=== PATIENT | female | born 1945 | race Caucasian/White ===

== ENCOUNTER 2016-10-24 18:03 | Inpatient (IN) | payer MEDICARE, OTHER ==
[~2016-10-24] VITALS: Ht 167.6 cm; Wt 65.5 kg
[2016-10-24 18:08] VITALS: BP 139/63; PULSE 60; RESP 20; O2SAT 99
[2016-10-24 19:59] LABS: BASOPHILS % (AUTO) 0.2 % (0-3); EOSINOPHILS % (AUTO) 0.1 % (0-5); Mean Corpuscular Hemoglobin 31.2 pg (27.0-35.0); Mean Corpuscular Volume 90.3 fL (81-100); Platelet Count 202 bil/L (150-400)
--- NOTE | 2016-10-24 20:08 | ED.REPORT ---
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 She also began experiencing nausea and vomiting four hours ago. The pt had major abdominal surgery in 03/2016 including tumor removal, ovary removal and small intestine resection. She experienced similar symptoms in 06/2016 and was seen in [place]. A CT scan was performed and ruled out a bowel obstruction. Nursing Notes Stated Complaint: ABDOMINAL PAIN,NAUSEA Chief Complaint: Female Abdominal Pain Nursing Notes Reviewed: Yes Allergies: Coded Allergies: morphine (Verified Allergy, Severe, hives, 10/24/16) Scheduled Ascorbic Acid (Vitamin C) 250 Mg Tab.chew 500 MG PO BID Aspirin Chew (Aspirin Chew) 81 Mg Chew 81 MG PO HS Calcium Carbonate (Calcium Carbonate) 600 Mg Tablet 600 MG PO BID Cholecalciferol (Vitamin D3) (Vitamin D3) 2,000 Unit Tablet 2,000 UNIT PO DAILY Lanreotide Acetate (Somatuline [place]) 60 Mg/0.2 Ml Syringe Unknown Dose SQ QMONTH General Time Seen by MD: 20:08 Chief Complaint Abdominal pain Hx Obtained From: Patient, Spouse Arrived By: Walk-in Sudden in Onset?: No Onset Occurred: 9 - 12 hours ago Symptom Duration: Since onset Recent Healthcare: No recent hospitalization, Recent doctor visit Similar Sx Previous: Yes Past Medical History Past Medical History neuroendocrine cancer with mets to liver Past Surgical History abdominal surgery 03/2016 Smoking History Unknown if Ever Smoker 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 Physical Exam Vital Signs Vital Signs (First) Date Time Temp Pulse Resp B/P Pulse Ox O2 Delivery O2 Flow Rate FiO2 10/24/16 18:08 36.3 60 20 139/63 99 Room Air Initial VS: Reviewed General/Constitutional: Awake, Alert Respiratory / Chest: Atraumatic, Breath sounds NL, Breath sounds = bilat, No respiratory distress Cardiovascular: Heart rate NL, Regular rhythm, Heart sounds NL Abdomen: Atraumatic, Soft mild diffuse abdominal tenderness Back: Atraumatic, Full range of motion Head / Eyes: Atraumatic, Normocephalic, PERRL, EOMI ENT: Atraumatic, Airway patent, Mucous membranes moist Skin: Atraumatic, Color NL, No rash, Warm, Dry Neurologic: Oriented X3, Speech NL, No motor deficits, No sensory deficits Neck: Atraumatic, Supple, Full range of motion Upper Extremity / MS: Atraumatic, Full range of motion Lower Extremity / Pelvis / MS: Atraumatic, Full range of motion Psychiatric: Affect NL, Mood NL Interpretation & Diagnostics Interpretation & Diagnostics: CT Abdomen: IMPRESSION: 1. Multiple hepatic hypodensities peripherally. Differential diagnoses include hepatic cysts, abscesses and metastases. Comparison to outside CTs, if available, would be helpful. 2. Distal small bowel obstruction. 3. Absence of gallbladder consistent with cholecystectomy. There is intrahepatic and extrahepatic biliary dilation. 4. Bilateral subcutaneous soft tissue nodules in the in the buttock, possibly injection granulomas. The result was discussed with Dr. Dixon prior to dictation. Dictated by: Anna Marie Snow M.D. on 10/24/2016 at 21:21 Transcribed by: MACI on 10/24/2016 at 21:34 Approved by: Anna Marie Snow M.D. on 10/24/2016 at 22:38 Lab Results Interpretation Result Diagram: 10/24/16194410/24/161944 Test 10/24/16 19:45 White Blood Count 17.7th/mm3 (3.8-10.1) Red Blood Count 4.87mil/mm3 (3.90-5.20) Hemoglobin 15.2g/dL (12.0-15.6) Hematocrit 44.0% (35.0-46.0) Mean Corpuscular Volume 90.3fL (81-100) Mean Corpuscular Hemoglobin 31.2pg (27.0-35.0) Mean Corpuscular Hemoglobin Concent 34.5% (32.0-37.0) Red Cell Distribution Width 12.4% (12.3-15.4) Platelet Count 202bil/L (150-400) Neutrophils (%) (Auto) 91.0% (40-74) Lymphocytes (%) (Auto) 3.3% (14-46) Monocytes (%) (Auto) 5.0% (4-12) Eosinophils (%) (Auto) 0.1% (0-5) Basophils (%) (Auto) 0.2% (0-3) Sodium Level 136mEq/L (134-144) Potassium Level 4.2mEq/L (3.5-5.2) Chloride Level 96mEq/L (97-108) Carbon Dioxide Level 23mmol/L (18-29) Blood Urea Nitrogen 13mg/dL (8-27) Creatinine 0.63mg/dL (0.57-1.00) Estimat Glomerular Filtration Rate 134mL/min (>59) Glucose Level 163mg/dL (60-99) Lactic Acid Level 2.2mmol/L (0.4-2.0) Calcium Level 9.8mg/dL (8.5-10.1) Magnesium Level 2.0mg/dL (1.6-2.6) Total Bilirubin 0.7mg/dL (0.0-1.2) Aspartate Amino Transf (AST/SGOT) 39U/L (0-50) Alanine Aminotransferase (ALT/SGPT) 27U/L (0-32) Alkaline Phosphatase 121U/L (25-165) Total Protein 7.0g/dL (6.4-8.4) Albumin 4.1g/dL (3.4-5.0) Lipase 16U/L (13-60) Hold Ding Top Tube Received (Received) Pulse Oximetry Interpretation Pulse Oximetry Interpretation: 99% on room air Pulse Oximetry: Pulse Ox normal Re-Eval/Medical Decision Re-Evaluation/Progress : Time of Eval: 22:15 Re-Evaluation/Progress Note: Pt rechecked, who is comfortable. Consults, diagnosis, and plan for admission are discussed. The pt understands and agrees with the plan. All questions are addressed at this time. Consultation #1: Call Returned at: 22:02 Note: Spoke with Dr. Claudia Hernández, pt's oncologist in [place], [place], regarding pt's case. Dr. Hernández understands the situation and agrees with the plan. Consultation #2: Referral / Consult Name: Guevara Ellison MD Consulted With: Surgeon Call Returned at: 22:14 Provisioning Specialist: Will see patient Note: Consulted with Dr. Ellison, surgeon, regarding pt's case. Dr. Ellison agrees with the plan and agrees to see the pt. Consultation #3: Referral / Consult Name: Peggy Rose DO Consulted With: Hospitalist Call Returned at: 22:25 Provisioning Specialist: Agrees with eval, Agrees with plan, Accepts admit Note: Spoke with Dr. Rose, hospitalist, regarding pt's case. Dr. Rose agrees with the evaluation and agrees to admit the pt. Consultation #4: Referral / Consult Name: Guevara Ellison MD Consulted With: Surgeon Call Returned at: 23:06 Note: Spoke with Dr. Ellison in the ED, who recommends surgery at some point. Counseled Regarding: Diagnosis, Lab results, Need for admission Discharge & Departure Primary Impression: Small bowel obstruction Additional Impression: Liver metastasis Disposition: ADMITTED TO HOSPITAL Discharge Condition All VS Reviewed: Yes Condition: Stable Referrals: OTHER,PHYSICIAN (PCP) Scribe Attestation Portions of this note were transcribed by Jeffrey Ortiz. I, Dr. Dixon personally performed the history, physical exam and medical decision-making; I reviewed and confirmed the accuracy of the information in the transcribed note. Signed by: Marian Heaton, 10/24/2016 and 2317. Med Dixon DO Oct 24, 2016 20:08 JEFFREY ORTIZ Oct 24, 2016 20:28
[2016-10-24] MEDS ORDERED: Iohexol 300 mg/mL 30 mL Inj PO ONE (20:10)
[2016-10-24] MEDS ORDERED: fentaNYL-PF 50 mCg/mL 2 mL Inj IVPUSH PRN (20:30)
[2016-10-24] MEDS ORDERED: Ondansetron 2 mg/mL 2 mL Inj IVPUSH PRN ×2 (20:30→23:35)
--- NOTE | 2016-10-24 21:33 | DRSVH ---
PROCEDURE: CT ABDOMEN AND PELVIS WITH CONTRAST ([id number]) INDICATIONS: abdominal pain, 16K wbc count TECHNIQUE: After the administration of intravenous contrast, 5 mm thick sections acquired from the diaphragm to the symphysis. 5 mm coronal and sagittal reformats were acquired. For radiation dose reduction, the following was used: automated exposure control, adjustment of mA and/or kV according to patient siz e. COMPARISON: None. FINDINGS: Image quality: Excellent. ABDOMEN: Lung bases: Lung bases are clear. Heart size is normal. There is a small hiatal hernia. Solid organs: There are multiple hepatic hypodensities. Some hypodensities demonstrate somewhat trian gular configuration, extending to the hepatic capsule. Spleen is normal in size and enhancement. Gal lbladder is absent. There is intrahepatic and extrahepatic biliary dilation. Pancreas enhances hetal lly. No adrenal nodules. Kidneys demonstrate normal size and enhancement, without hydronephrosis. Peritoneum and bowel: Gastric antrum may be thickened. The proximal small bowel loops are filled wit h fluid and mildly distended measuring up to 3.5 cm. The terminal ileum is decompressed. The CT findi ngs are consistent with distal small bowel obstruction. There is a small amount of free fluid. No hector e air. Nodes and vessels: No retroperitoneal or mesenteric adenopathy by size criteria. Aorta and inferior vena cava are normal in size. Miscellaneous: No ventral hernias. PELVIS: Genitourinary: Bladder wall thickness is normal. Miscellaneous: No inguinal hernias or adenopathy. Multiple subcutaneous nodules are seen in the but tock bilaterally. Bones: No suspicious bony lesions. No vertebral body compression fractures. IMPRESSION: 1. Multiple hepatic hypodensities peripherally. Differential diagnoses include hepatic cysts, abscess es and metastases. Comparison to outside CTs, if available, would be helpful. 2. Distal small bowel obstruction. 3. Absence of gallbladder consistent with cholecystectomy. There is intrahepatic and extrahepatic january iary dilation. 4. Bilateral subcutaneous soft tissue nodules in the in the buttock, possibly injection granulomas. The result was discussed with Dr. Dixon prior to dictation. Dictated by: Anna Marie Snow M.D. on 10/24/2016 at 21:21 Transcribed by: MACI on 10/24/2016 at 21:34 Approved by: Anna Marie Snow M.D. on 10/24/2016 at 22:38
[2016-10-24 22:25] VITALS: BP 144/62; PULSE 82; RESP 16; O2SAT 97
--- NOTE | 2016-10-24 22:53 | PCM.HPMED ---
Subjective Date of Service Oct 24, 2016 Primary Provider: Admitting Physician: Primary Care Physician: Other,Physician Attending Physician: Admit Status: From the Emergency Department Chief Complaint: Female with nausea vomiting and Abdominal pain History of Present Illness: Charity is a very pleasant 71 year old female with a past medical history of neuroendocrine tumor with mets to the liver, now status post tumor resection, small bowel resection, bilateral nephrectomy, cholecystectomy in March 2016. She presented to the ED today after experiencing acute onset 9 out of 10 severe sharp abdominal pain around 12:00 noon on day of admission. Patient states that she has had similar pain to this a total of 4 times in the past, since her abdominal surgery March 2016. She was hospitalized after experienced similar symptoms on 06/2016 and was seen in [place] where she had CT of the abdomen that was negative for SBO at that time. Patient states that she has been experiencing nausea and abdominal pain today but denies vomiting. She states that she has been voiding without difficulty and passed a normal bowel movement this morning. She recently returned from a trip on Tuesday from [facility]. Patient travels frequently, but not out of the country. Patient' s only medication is Lanreotide. Patient lives at home with her Nahum. Patient had NG tube placed in the ED and CT of the abdomen which showed distal small bowel obstruction and liver lesions likely representing metastases. Call was placed by the ED physician to patient's oncology group in [place] regarding patient's current status. Patient is also being seen by Dr. Ellison of surgery. Patient was admitted to inpatient status for possible surgical intervention in the morning, vs possible transport to [facility] for surgery there. Patient denies fever, chills, vomiting, headaches, sick contacts , diarrhea, sore throat. CT abdomen and pelvis with contrast showed: 1. Multiple hepatic hypodensities peripherally. Differential diagnoses include hepatic cysts, abscesses and metastases. Comparison to outside CTs, if available , would be helpful. 2. Distal small bowel obstruction. 3. Absence of gallbladder consistent with cholecystectomy. There is intrahepatic and extrahepatic biliary dilation. 4. Bilateral subcutaneous soft tissue nodules in the in the buttock, possibly injection granulomas. In the ED: Vital signs: Temperature 36.3, pulse 60, respiratory rate 20, blood pressure 139 /63, 99% on room air. Hemogram: White blood cells 17.7, PMNs 91%, lymphocytes 3.3% Chemistry panel: Sodium 136, potassium 4.2, chloride 96, CO2 23, BUN 13, creatinine 0.63, glucose elevated at 163, lactic acid elevated at 2.2, lipase 16 Blood cultures ordered and pending Review of Systems: A comprehensive review of systems was conducted and was negative except as mentioned in history of present illness. Allergies Coded Allergies: morphine (Verified Allergy, Severe, hives, 10/24/16) Home Medications Lanreotide PMH neuroendocrine cancer with mets to liver, status post surgical resection 03/2016 Surgical History abdominal surgery 03/2016 secondary to neuroendocrine tumor resection, with removal of gallbladder, omentum, bilateral ovaries, small bowel resection, and ablation of the liver. Family History Mother of lung cancer secondary to tobacco smoke Father of stroke Social History Hx Alcohol Use: No Hx Substance Use: No Hx Tobacco Use: No Smoking Status: Unknown if Ever Smoker Living Arrangement: with Family ( Nahum for number [phone]) Exam Vital Signs Vital Sign - Last Date Time Temp Pulse Resp B/P Pulse Ox O2 Delivery O2 Flow Rate FiO2 10/24/16 22:25 82 16 144/62 97 Room Air 10/24/16 18:08 36.3 Exam General: Patient is alert and oriented 3, is resting comfortably in bed during this interview, in no apparent distress. HEENT: NG tube in place in right nares, NC/AT, eyes, PERRLA, EOMI, neck, soft supple, no adenopathy, no JVD, no masses, no thyromegaly, throat mucous membranes pink and moist, no erythema, no exudates, no tonsillar swelling, no uvular deviation, teeth in good repair. Lungs: CTAB all arias, no wheezes, no rhonchi, no crackles, no adventitious lung sounds, no use of accessory muscles of respiration, good air movement, good respiratory effort. Heart: Regular rate and rhythm, no murmur, S1-S2 present, no rub, no click, no distant heart sounds, Abdomen: Soft, nontender, nondistended, bowel sounds are hypoactive and with tinkling sounds present, no rebound, no guarding, pink midline surgical scar that is well-healed present. Genitourinary: No CVA tenderness, no suprapubic tenderness, no Robles catheter, Extremities: pulses equal and symmetric upper/lower extremity including radial and dorsalis pedis, no edema Neurologic: Grossly neurologically intact, speaking in full sentences, no focal neurological signs. Skin: Age-appropriate, intact, dry, no rash Psychiatric: Mood is and affect are congruent and appropriate. Lab and Diagnostics Result Diagram: 10/24/16194410/24/161944 X-Rays, CTs and MRIs CT Abdomen : IMPRESSION: 1. Multiple hepatic hypodensities peripherally. Differential diagnoses include hepatic cysts versus abscesses. 2. Distal small bowel obstruction. 3. Absence of gallbladder consistent with cholecystectomy. There is intrahepatic and extrahepatic biliary dilation. 4. Bilateral subcutaneous soft tissue nodules in the in the buttock, possibly injection granulomas. Dictated by: Anna Marie Snow M.D. 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 Patient was admitted for surgical intervention. # Acute onset distal small bowel obstruction, present on admission, active -Vital signs every 4 hours - Has history of neuroendocrine tumor with metastases to the liver. She had tumor resection to include her ovaries done 03/2016. Of note patient also had symptoms of SBO was found to be negative by CT in June 2016. - Patient presented with acute onset abdominal pain with associated nausea and vomiting. - CT scan of the abdomen showed distal SBO - NG tube in placed draining green colored fluid - ED physician Dr. Dixon placed call to patient's oncologist in [place] Dr. Claudia Hernández who recommended surgical consult. - Dr. Ellison surgery consulting and will see patient, thank you for your recommendations. - Given patient's metastases it is thought that her small bowel obstruction may be secondary to metastases rather than adhesions. Because of this patient may transfer to [facility]. - Patient placed nothing by mouth for possible surgical intervention in the morning versus transfer to [facility] in [place] where patient had her original surgery done. - Start IV Dilaudid 0.5-1 mg when necessary every 4 hours - Continue IV Zofran as needed. - IV normal saline at 100 mL's per hour maintenance # Acute elevated lactic acid, mild, present on admission, active - Lactic acid level 2.2 - IV normal saline as above #Acute leukocytosis, present on admission, active - White blood cell count 17.2 - Likely secondary to SBO - pro calcitonin ordered and pending # Hyperglycemia present admission, active - Glucose 163 - We will continue to monitor - We will order hemoglobin A1c Chronic problems # Neuroendocrine tumor, with metastases to the liver, status post surgical resection 03/2016, present on admission -We will hold medication Lanreotide for now given NPO status - Patient's oncologist is Dr. Alvarez in [facility] Disposition: Admitted to in patient service with expected length of stay greater than 2 days, secondary to severity of presenting symptoms, treatment plan, complexity of clinical work up, and risk of adverse events. CODE STATUS: Full code PCP: Rehan Degroot DVT PE prophylaxis: SCD's/Enoxiparin/SubQ heparin Q8H Contact: Nahum [phone], daughter Janet [phone] Pain Evaluation: Adequate Pain Control (current pain is 5-6 out of 10) VTE Prophylaxis: SCDs Resuscitation Status: CPR: Attempt Resuscitation Attending Statement The patient was seen and examined together with house staff on 10/24/2016 and I agree with the history, exam and plan as outlined in the note above. Christopher Barker DO Oct 24, 2016 22:53 Peggy Rose DO Oct 25, 2016 04:23
[2016-10-24] MEDS ORDERED: ASCO250T7 PO (23:25)
[2016-10-24] MEDS ORDERED: CHOL200025 PO (23:25)
[2016-10-24] MEDS ORDERED: CALC600T20 PO (23:25)
[2016-10-24] MEDS ORDERED: LANR60SY SQ (23:25)
[2016-10-24] MEDS ORDERED: ASPI81TA3 PO (23:25)
[2016-10-24 23:53] LABS: APPEARANCE,URINE CLEAR (CLEAR,HAZY); COLOR,URINE STRAW (YELLOW); OCCULT BLOOD,URINE NEGATIVE (NEGATIVE); UROBILINOGEN,URINE NORMAL (NORMAL)
[2016-10-24 23:59] VITALS: BP 130/67; PULSE 66; RESP 16; O2SAT 95
[2016-10-25] VITALS (8 sets, daily range): BP systolic 111–147; BP diastolic 62–78; PULSE 56–94; RESP 18–20; O2SAT 92–98
[2016-10-25] MEDS ORDERED: HYDROmorphone 1 mg/mL Inj IVPUSH PRN (00:10)
--- NOTE | 2016-10-25 00:14 | CONS ---
[address] [address] CONSULTATION REPORT PATIENT: CORI ABEL : 1945 MR#: [id number] ADMIT: 10/24/2016 JOB ID: [id number] DATE OF SERVICE: CHIEF COMPLAINT AND IDENTIFICATION: Dr. Dixon has asked me to see this 71-year-old woman with a partial small bowel obstruction in the emergency department. HISTORY OF PRESENT ILLNESS: Patient noted onset of abdominal pain, nausea and vomiting this afternoon. She had a normal bowel movement earlier in the day. She is still passing a small amount of flatus. She was vomiting prior to coming to the emergency department, but with some Zofran is less nauseous. She has had only one previous surgery, but this was roughly nine months ago down in [facility] where she had an extensive abdominal operation for metastatic carcinoid tumor with what she describes as small bowel primary. She had a small bowel resection with primary anastomosis, as well as omentectomy, hysterectomy and oophorectomy by her [employer] oncologist in combination with her surgical oncologist. She also had known liver disease and had some superficial liver disease taken off, but had deep liver disease. She has been followed by her oncologist, receiving somatostatin infusions once a month. Interestingly, she has never had carcinoid syndrome and has no symptoms of flushing, diarrhea or racing heart. In the past several months, she has had three or four of these episodes of abdominal pain and nausea, the only one that was bad enough to take her to the emergency department at the [facility] where she had a CAT scan and was discharged. PAST MEDICAL HISTORY: Otherwise negative. MEDICATIONS: None. ALLERGIES: MORPHINE. SOCIAL HISTORY: She is . She is seen with her . They split their time between [place] and [facility]. She does not have medical care up here in this state. They have expressed a preference to have her surgery at [facility] if she requires surgery. She is a nonsmoker. She does not drink alcohol on a daily basis, but she has a glass of wine almost on a daily basis. REVIEW OF SYSTEMS: Per admission history and physical. PHYSICAL EXAMINATION: Slender woman in no acute distress. Her vital signs are within normal limits. Her neck is clear. Her sclerae are clear. Neck is supple. Breasts are not examined. Her heart and lung are unremarkable. Her abdomen is not particularly distended, with some active bowel sounds, but no real rushes and tinkles. She does not feel that she is distended. She does have some moderate tympany. There are no hernias in the incisions or in her groin. She does have a fairly fresh scar that is not mature yet. Rectal examination is not performed. Extremities are without edema. LABORATORIES: Her white blood cell count is 17.7, her hematocrit is 44, platelet count is 202. Chemistries are more or less normal. Glucose is 163, lactic acid is 2.2. Liver function tests are normal. Lipase is 16. IMAGING: She had an abdominal CT scan and I have reviewed both the report and the films myself. I agree that she has a distal small bowel obstruction. I believe that she has signs consistent with metastatic carcinoid disease as well. IMPRESSION AND PLAN: A 71-year-old woman without significant medical comorbidities, but with metastatic carcinoid tumor status post resection. I have explained to her that her obstruction is possibly due to adhesions, possibly due to tumor. I have recommended nasogastric tube placement to maximize her chance of getting away without an operation. I have reviewed the fact that one of my partners will be following her up, but that if her obstruction does not resolve itself in 24-48 hours she will likely have surgery recommended to her. She and her have expressed their desire that if she is going to have surgery that she have it done down in [place]. We discussed whether or not she would want to be transferred down there right away. At this point, they will stay in the hospital, she will accept a nasogastric tube, and they will consult with her oncologist by phone in the morning. General Surgery will follow her along.
[2016-10-25] MEDS: 0.9% Sodium Chloride 1,000 ML IV SCH ×3 (00:16→21:00)
[2016-10-25 05:37] LABS: BASOPHILS % (AUTO) 0.3 % (0-3); MONOCYTES % (AUTO) 6.4 % (4-12); Mean Corpuscular Hemoglobin 31.1 pg (27.0-35.0); Mean Corpuscular Volume 90.8 fL (81-100); NEUTROPHILS % (AUTO) 84.3 % (40-74); Platelet Count 183 bil/L (150-400)
--- NOTE | 2016-10-25 06:31 | NUR ---
Admit from ED at midnight. Denies abd pain or nausea. NGT to continuous suction with scant yellow output. Tele placed; sinus 1st degree block with IVCD HR 60-70. Asymptomatic. VSS. Admit completed.
--- NOTE | 2016-10-25 08:36 | DRSVH ---
PROCEDURE: X-RAY ACUTE ABDOMINAL SERIES ([id number]) INDICATIONS: SMALL BOWEL OBSTRUACTION TECHNIQUE: One view chest and two views of the abdomen were acquired. COMPARISON: 10/24/16 CT. FINDINGS: Surgical changes and devices: Enteric tube with tip projected over the mid stomach. Chest: Lungs are clear. Heart size is normal. No pleural effusions. No pneumoperitoneum. Abdomen: Nondilated gas and fluid-filled loops of small bowel.. No suspicious calcifications. Visua lized solid organ contours appear normal. Bones: No suspicious bony lesions. IMPRESSION: Enteric tube tip projected over the mid stomach. Given differences in technique, bowel gas pattern is improved since the previous CT. Dictated by: Jim Lynn M.D. on 10/25/2016 at 8:33 Approved by: Jim Lynn M.D. on 10/25/2016 at 8:34
--- NOTE | 2016-10-25 11:34 | PCM.PNMED ---
Subjective Date of Service Oct 25, 2016 Subjective pt denied any n/v, abdomen remained benign tolerated NG decompression, As per , oncologist, recommended supportive tx, as this is low-grade tumor, unlikely progress to complete obstruction. Exam Vital Signs Vital Sign - Last Date Time Temp Pulse Resp B/P Pulse Ox O2 Delivery O2 Flow Rate FiO2 10/25/16 10:19 59 10/25/16 09:32 36.8 20 138/78 98 Room Air Intake and Output 10/24/16 10/24/16 10/25/16 Cumulative From/Thru 15:00 23:00 07:00 10/24/16 18:08 - 10/25/16 06:30 Intake Total 0 ml 0 ml Output Total 600 ml 600 ml Balance -600 ml -600 ml Intake Oral 0 ml 0 ml Output Urine Total 600 ml 600 ml Exam NAD, comfortably laying down on the bed no JVD, MMM, no LAD RRR, nl s1, s2 no mrg CTAB, no w,c S,ND,NT,normoactive BS+ warm, no edema, pulses 2/[address] IVs and Medications Medications Reviewed: Medications were reviewed in detail Lab and Diagnostics Result Diagram: 10/25/16 0510 10/25/16 0510 X-Rays, CTs and MRIs CT Abdomen : IMPRESSION: 1. Multiple hepatic hypodensities peripherally. Differential diagnoses include hepatic cysts versus abscesses. 2. Distal small bowel obstruction. 3. Absence of gallbladder consistent with cholecystectomy. There is intrahepatic and extrahepatic biliary dilation. 4. Bilateral subcutaneous soft tissue nodules in the in the buttock, possibly injection granulomas. Dictated by: Anna Marie Snow M.D. 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 Patient was admitted for surgical intervention. acute, active #Distal small bowel obstruction, POA, in the setting of neuroendocrine tumor with metastases to the liver. She had tumor resection to include her ovaries done 03/2016. Of note patient also had symptoms of SBO was found to be negative by CT in June 2016. repeat Acute series 10/25 showed resolving SBO -pt clinically improving with NG suction, continue for now -appreciate surgery service FU, -zofran for n/v, dilaudid prn for pain - primary oncologist recommended supportive tx -serial abd exam -NPO for now, consider advancing diet tomorrow # Neuroendocrine tumor, with metastases to the liver, status post surgical resection 03/2016, present on admission - FU with oncologist is Dr. Alvarez in [facility] chronic, stable, resolved, # Acute elevated lactic acid, mild, in the setting acute illness, clinically not significant. #Acute leukocytosis, present on admission, resolving with IVF, Disposition: likely 1-2days home no need CODE STATUS: Full code PCP: Rehan Degroot DVT PE prophylaxis: SCD's/Enoxiparin/SubQ heparin Q8H Contact: Nahum [phone], daughter Janet [phone] VTE Prophylaxis: SCDs VTE Mechanical Devices: Intermittant Pneumatic CD Resuscitation Status: CPR: Attempt Resuscitation Time spent 35min Eloise Tello MD Oct 25, 2016 11:34
--- NOTE | 2016-10-25 15:02 | PCM.PNSURG ---
Subjective Date of Service: Oct 25, 2016 Date of Service: Oct 25, 2016 Visit Information: Reason for Visit R/O Liver Mets,Small Bowel Obstruction Surgery/Surgery Date Post-Op Day # Date of Admission: Oct 24, 2016 at 23:05 Hospital Day # 2 Subjective: Patient seen at bedside. Doing better this pm with no abdominal discomfort, nausea or emesis. Denies f/c. Postop General: No Complaints (except NGT discomfort at nares.) Gastrointestinal: No N/V, Passing Flatus Objective Objective pleasant conversant female in nad. Afebrile, VSS. Vital Sign- Last 8 Hours Date Time Temp Pulse Resp B/P Pulse Ox O2 Delivery O2 Flow Rate FiO2 10/25/16 12:58 36.9 56 18 147/70 98 Room Air 10/25/16 10:19 59 10/25/16 09:32 36.8 57 20 138/78 98 Room Air Intake and Output- Last 8 Hour 10/25/16 Cumulative From/Thru 07:00 10/24/16 18:08 - 10/25/16 06:30 Intake Total 0 ml 0 ml Output Total 600 ml 600 ml Balance -600 ml -600 ml Intake Oral 0 ml 0 ml Output Urine Total 600 ml 600 ml General: Alert, Cooperative, No Acute Distress Lungs: Clear to Auscultation Heart: Regular Rate/Rhythm Abdomen: Benign, Soft, Non-tender, Non-distended Catheters: None Result Diagram: 10/25/16 0510 10/25/16 0510 Lab & Micro Results: 70741 WBC yesterday; now [address]45[address]. Diagnostics: PROCEDURE: X-RAY ACUTE ABDOMINAL SERIES ([id number]) INDICATIONS: SMALL BOWEL OBSTRUACTION COMPARISON: 10/24/16 CT. FINDINGS: Abdomen: Nondilated gas and fluid-filled loops of small bowel.. No suspicious calcifications. Visualized solid organ contours appear normal. IMPRESSION: Enteric tube tip projected over the mid stomach. Given differences in technique , bowel gas pattern is improved since the previous CT. Assessment & Plan Impression resolving small bowel obstruction Problems: Plan NGT clamp trial CBC in AM remain npo for now VTE Prophylaxis: SCDs Resuscitation Status: CPR: Attempt Resuscitation Ori Reeves PA-C Oct 25, 2016 15:02
--- NOTE | 2016-10-25 17:34 | NUR ---
GI- Denies abd. pain. NG tube draining dark green contents. NG clamped at 1615 per order and patient has denied nausea. Passing flatus, no stools. Tylenol given for headache with good relief.
[2016-10-26 04:47] VITALS: BP 154/69; PULSE 60; RESP 18; O2SAT 100
[2016-10-26 06:01] LABS: BASOPHILS % (AUTO) 0.8 % (0-3); EOSINOPHILS % (AUTO) 2.6 % (0-5); MONOCYTES % (AUTO) 6.5 % (4-12); Mean Corpuscular Hemoglobin 31.3 pg (27.0-35.0); Mean Corpuscular Volume 90.7 fL (81-100); NEUTROPHILS % (AUTO) 68.9 % (40-74); Platelet Count 167 bil/L (150-400)
--- NOTE | 2016-10-26 06:07 | NUR ---
NG tube Patient's NG tube was unclamped at 2014. After NG was unclamped, patient had out put of 50cc. NG was DC'd. Patient states that she had no nausea or abdominal discomfort throughout the night. Patient remains NPO. Vitals stable. Patient had a headache this morning and was given one Tylenol. Patients stated her headache was relieved.
[2016-10-26 06:15] LABS: Magnesium 2.1 mg/dL (1.6-2.6); Phosphorus 3.1 mg/dL (2.5-4.9)
[2016-10-26] MEDS: 0.9% Sodium Chloride 1,000 ML IV SCH (06:38)
--- NOTE | 2016-10-26 09:57 | PCM.PNSURG ---
Subjective Date of Service: Oct 26, 2016 Visit Information: Reason for Visit: Recurrent Small Bowel Obstruction Resolving Surgery/Surgery Date Post-Op Day # Date of Admission: Oct 24, 2016 at 23:05 Hospital Day # 3 Subjective: Patient denied any pain, nausea, vomiting, has past flatus, but has not had a bowel movement, abdomen has remained benign, & tolerated NG tube decompression, clamping trial with a minimal residuals, & removal. The patient has been out of bed ambulating within normal limits and ate breakfast this morning without complaints. The patient says she saw her Medical Attending & was told that she will likely be able to go home this afternoon. Postop General: No Complaints Gastrointestinal: Good Appetite, Tolerating Oral Feedings, No N/V, Passing Flatus Pain Management: No or Minimal Pain Postop Activity: Ambulating Independently Objective Vital Sign- Last 8 Hours Date Time Temp Pulse Resp B/P Pulse Ox O2 Delivery O2 Flow Rate FiO2 10/26/16 04:47 36.5 60 18 154/69 100 Room Air Intake and Output- Last 8 Hour 10/26/16 Cumulative From/Thru 07:00 10/24/16 18:08 - 10/26/16 06:47 Intake Total 1292 ml 2422 ml Output Total 1310 ml Balance 1292 ml 1112 ml Intake Oral 0 ml IV Total 1292 ml 2422 ml Output Urine Total 1150 ml Gastric Drainage Total 160 ml # Bowel Movements 0 General: Alert, Oriented X3 Lungs: Clear to Auscultation Heart: Exam Unremarkable Abdomen: Benign, Soft, Non-tender, Non-distended, Normoactive bowel tones SURGICAL WOUND : Wound Location/Description Midline abdominal surgical scar. Extremities: Thigh&Calf Soft/Nontender Neuro: Normal Speech Result Diagram: 10/26/16 0519 10/26/16 0519 Assessment & Plan Impression Resolving probable recurrent small bowel obstruction with history of neuroendocrine metastatic cancer status post status post tumor resection, small bowel resection, bilateral nephrectomy, & cholecystectomy in [place] March 2016. Problems: Plan 1. Stable for discharge from a General Surgery standpoint per Dr. Mason. 2. Follow-up with our Service outpatient as needed for symptomatic recurrence. 3. Follow-up with her [place] [facility] [place] [facility]ologist's in 3- 4 weeks as planned. VTE Prophylaxis: SCDs Resuscitation Status: CPR: Attempt Resuscitation Jasvir Ying PA-C Oct 26, 2016 09:57
--- NOTE | 2016-10-26 11:00 | PCM.DIMED ---
Discharge Instructions Date of Service Oct 26, 2016 Dates of Hospitalization Oct 24, 2016 at 23:05 Discharge Diagnosis Discharge Diagnosis Partial small bowel obstruction Diet Discharge Diet: Other (please advance your diet slowly) Activity Discharge Activity: No restrictions Call your provider Call your provider for: Vomitting, Excessive diarrhea Patient Instructions Patient Instructions You were hospitalized with partial small bowel obstruction, in the setting of known neuroendocrine tumor. You were treated supportively with nasogastric tube decompression. Your condition improved significantly without any surgery Please advance your diet slowly, avoid heavy, hard meals for now. Please follow up with your primary doctor Oncologist in [place] in 4 weeks Follow-up with PCP in: 2 weeks Eloise Tello MD Oct 26, 2016 11:00
[2016-10-26 12:28] VITALS: BP 148/75; PULSE 49; RESP 16; O2SAT 100
--- NOTE | 2016-10-26 14:37 | NUR ---
Discharge note- Denies abd. pain or nausea. Tolerated soft diet and fluids well. Up ambulating in hallway. Discharged to home with and personal belongings.
--- NOTE | 2016-10-27 16:22 | PCM.DC.MED ---
Discharge Summary Date of Service Oct 26, 2016 Dates of Hospitalization Date of Hospital Admission Oct 24, 2016 at 23:05 Date of Discharge: Oct 26, 2016 Providers: Admitting Physician: Eloise Tello MD Primary Care Physician: Other,Physician Attending Physician: Eloise Tello MD Diagnosis at Time of Discharge Diagnosis at Time of Discharge acute dx Partial small bowel obstruction, in the setting of neuroendocrine tumor with metastases to the liver. Neuroendocrine tumor, with metastases to the liver, status post surgical resection 03/2016 Consultations general surgery Procedures XRay, CTs & MRIs PROCEDURE: X-RAY ACUTE ABDOMINAL SERIES ([id number]) INDICATIONS: SMALL BOWEL OBSTRUACTION TECHNIQUE: One view chest and two views of the abdomen were acquired. COMPARISON: 10/24/16 CT. FINDINGS: Surgical changes and devices: Enteric tube with tip projected over the mid stomach. Chest: Lungs are clear. Heart size is normal. No pleural effusions. No pneumoperitoneum. Abdomen: Nondilated gas and fluid-filled loops of small bowel.. No suspicious calcifications. Visualized solid organ contours appear normal. Bones: No suspicious bony lesions. IMPRESSION: Enteric tube tip projected over the mid stomach. Given differences in technique , bowel gas pattern is improved since the previous CT. Dictated by: Jim Lynn M.D. on 10/25/2016 at 8:33 Approved by: Jim Lynn M.D. on 10/25/2016 at 8:34 PROCEDURE: CT ABDOMEN AND PELVIS WITH CONTRAST ([id number]) INDICATIONS: abdominal pain, 16K wbc count TECHNIQUE: After the administration of intravenous contrast, 5 mm thick sections acquired from the diaphragm to the symphysis. 5 mm coronal and sagittal reformats were acquired. For radiation dose reduction, the following was used: automated exposure control, adjustment of mA and/or kV according to patient size. COMPARISON: None. FINDINGS: Image quality: Excellent. ABDOMEN: Lung bases: Lung bases are clear. Heart size is normal. There is a small hiatal hernia. Solid organs: There are multiple hepatic hypodensities. Some hypodensities demonstrate somewhat triangular configuration, extending to the hepatic capsule. Spleen is normal in size and enhancement. Gallbladder is absent. There is intrahepatic and extrahepatic biliary dilation. Pancreas enhances normally. No adrenal nodules. Kidneys demonstrate normal size and enhancement , without hydronephrosis. Peritoneum and bowel: Gastric antrum may be thickened. The proximal small bowel loops are filled with fluid and mildly distended measuring up to 3.5 cm. The terminal ileum is decompressed. The CT findings are consistent with distal small bowel obstruction. There is a small amount of free fluid. No free air. Nodes and vessels: No retroperitoneal or mesenteric adenopathy by size criteria. Aorta and inferior vena cava are normal in size. Miscellaneous: No ventral hernias. PELVIS: Genitourinary: Bladder wall thickness is normal. Miscellaneous: No inguinal hernias or adenopathy. Multiple subcutaneous nodules are seen in the buttock bilaterally. Bones: No suspicious bony lesions. No vertebral body compression fractures. IMPRESSION: 1. Multiple hepatic hypodensities peripherally. Differential diagnoses include hepatic cysts, abscesses and metastases. Comparison to outside CTs, if available , would be helpful. 2. Distal small bowel obstruction. 3. Absence of gallbladder consistent with cholecystectomy. There is intrahepatic and extrahepatic biliary dilation. 4. Bilateral subcutaneous soft tissue nodules in the in the buttock, possibly injection granulomas. The result was discussed with Dr. Dixon prior to dictation. Dictated by: Anna Marie Snow M.D. on 10/24/2016 at 21:21 Transcribed by: MACI on 10/24/2016 at 21:34 Approved by: Anna Marie Snow M.D. on 10/24/2016 at 22:38 Brief History HPI obtained by on 10/24 Charity is a very pleasant 71 year old female with a past medical history of neuroendocrine tumor with mets to the liver, now status post tumor resection, small bowel resection, bilateral nephrectomy, cholecystectomy in March 2016. She presented to the ED today after experiencing acute onset 9 out of 10 severe sharp abdominal pain around 12:00 noon on day of admission. Patient states that she has had similar pain to this a total of 4 times in the past, since her abdominal surgery March 2016. She was hospitalized after experienced similar symptoms on 06/2016 and was seen in [place] where she had CT of the abdomen that was negative for SBO at that time. Patient states that she has been experiencing nausea and abdominal pain today but denies vomiting. She states that she has been voiding without difficulty and passed a normal bowel movement this morning. She recently returned from a trip on Tuesday from [facility]. Patient travels frequently, but not out of the country. Patient' s only medication is Lanreotide. Patient lives at home with her Nahum. Patient had NG tube placed in the ED and CT of the abdomen which showed distal small bowel obstruction and liver lesions likely representing metastases. Call was placed by the ED physician to patient's oncology group in [place] regarding patient's current status. Patient is also being seen by Dr. Ellison of surgery. Patient was admitted to inpatient status for possible surgical intervention in the morning, vs possible transport to [facility] for surgery there. Patient denies fever, chills, vomiting, headaches, sick contacts , diarrhea, sore throat. CT abdomen and pelvis with contrast showed: 1. Multiple hepatic hypodensities peripherally. Differential diagnoses include hepatic cysts, abscesses and metastases. Comparison to outside CTs, if available , would be helpful. 2. Distal small bowel obstruction. 3. Absence of gallbladder consistent with cholecystectomy. There is intrahepatic and extrahepatic biliary dilation. 4. Bilateral subcutaneous soft tissue nodules in the in the buttock, possibly injection granulomas. In the ED: Vital signs: Temperature 36.3, pulse 60, respiratory rate 20, blood pressure 139 /63, 99% on room air. 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 Patient was admitted for surgical intervention. acute dx #Distal small bowel obstruction, in the setting of neuroendocrine tumor with metastases to the liver. She had tumor resection to include her ovaries done 03/2016. Of note patient also had symptoms of SBO was found to be negative by CT in June 2016. patient was managed conservatively with NGT decompression by surgery service. at [place] primary oncologist also recommended supportive tx given low- grade tumor rarely causing complete obstruction. Repeat Acute abdominal series showed resolving SBO, patient remained asymptomatic, therefore NGT was discontinued and pt tolerated diet well, deemed safe for d/c. # Acute elevated lactic acid, mild, in the setting acute illness, clinically not significant. #Acute leukocytosis, present on admission, resolved with IVF, chronic dx # Neuroendocrine tumor, with metastases to the liver, status post surgical resection 03/2016, pt will follow up with oncologist is Dr. Alvarez in [facility] Exam Vital Signs (Last) Date Time Temp Pulse Resp B/P Pulse Ox O2 Delivery O2 Flow Rate FiO2 10/26/16 12:28 36.7 49 16 148/75 100 Room Air Exam NAD, comfortably laying down on the bed no JVD, MMM, no LAD RRR, nl s1, s2 no mrg CTAB, no w,c S,ND,NT,normoactive BS+ warm, no edema, pulses 2/2 Test 10/24/16 19:45 10/24/16 23:30 10/25/16 12:10 10/26/16 05:19 Hemoglobin A1c 5.5% (4.8-5.6) Lactic Acid Level 2.2mmol/L (0.4-2.0) Lipase 16U/L (13-60) Procalcitonin 0.08ng/mL (0.00-0.08) Hold Ding Top Tube Received (Received) Urine Color Straw (YELLOW) Urine Appearance Clear (CLEAR,HAZY) Urine pH 7.0 (5.0-8.0) Urine Specific Morrill 1.036 (1.003-1.035) Urine Protein Negativemg/dL (NEG,TRACE) Urine Glucose (UA) Negativemg/dL (NEGATIVE) Urine Ketones 15mg/dL (NEGATIVE) Urine Occult Blood Negative (NEGATIVE) Urine Nitrite Negative (NEGATIVE) Urine Bilirubin Negative (NEGATIVE) Urine Urobilinogen Normalmg/dL (NORMAL) Urine Leukocyte Esterase Negative (NEGATIVE) Urine RBC 0-2/hpf (0-2) Urine WBC 0-5/hpf (0-5) Urine Epithelial Cells Few/hpf (NONE-MOD) Urine Crystals None seen (NONE SEEN) Urine Bacteria None/hpf (NONE-FEW) Urine Hyaline Casts Rare/lpf (NONE) Urine Granular Casts None seen (NONE SEEN) Urine Waxy Casts None seen (NONE SEEN) Urine Red Blood Cell Casts None seen (NONE SEEN) Urine White Blood Cell Casts None seen (NONE SEEN) Urine Mucus None seen (None Seen) Urine Trichomonas None seen (NONE SEEN) Urine Yeast None (NONE SEEN) Urinalysis Comment None Urine Culture Reflexed Not indicated Hold Urine Received (Received) White Blood Count 5.0th/mm3 (3.8-10.1) Red Blood Count 4.19mil/mm3 (3.90-5.20) Hemoglobin 13.1g/dL (12.0-15.6) Hematocrit 38.0% (35.0-46.0) Mean Corpuscular Volume 90.7fL (81-100) Mean Corpuscular Hemoglobin 31.3pg (27.0-35.0) Mean Corpuscular Hemoglobin Concent 34.5% (32.0-37.0) Red Cell Distribution Width 12.1% (12.3-15.4) Platelet Count 167bil/L (150-400) Neutrophils (%) (Auto) 68.9% (40-74) Lymphocytes (%) (Auto) 20.8% (14-46) Monocytes (%) (Auto) 6.5% (4-12) Eosinophils (%) (Auto) 2.6% (0-5) Basophils (%) (Auto) 0.8% (0-3) Sodium Level 141mEq/L (134-144) Potassium Level 4.2mEq/L (3.5-5.2) Chloride Level 104mEq/L (97-108) Carbon Dioxide Level 25mmol/L (18-29) Blood Urea Nitrogen 8mg/dL (8-27) Creatinine 0.59mg/dL (0.57-1.00) Estimat Glomerular Filtration Rate 145mL/min (>59) Glucose Level 102mg/dL (60-99) Calcium Level 8.4mg/dL (8.5-10.1) Phosphorus Level 3.1mg/dL (2.5-4.9) Magnesium Level 2.1mg/dL (1.6-2.6) Total Bilirubin 0.8mg/dL (0.0-1.2) Aspartate Amino Transf (AST/SGOT) 14U/L (0-50) Alanine Aminotransferase (ALT/SGPT) 15U/L (0-32) Alkaline Phosphatase 88U/L (25-165) Total Protein 5.7g/dL (6.4-8.4) Albumin 3.5g/dL (3.4-5.0) Discharge Medications Discharge Medications Ascorbic Acid (Vitamin C) 250 Mg Tab.chew 500 MG PO BID (Reported) Aspirin Chew (Aspirin Chew) 81 Mg Chew 81 MG PO HS (Reported) Calcium Carbonate (Calcium Carbonate) 600 Mg Tablet 600 MG PO BID (Reported) Cholecalciferol (Vitamin D3) (Vitamin D3) 2,000 Unit Tablet 2,000 UNIT PO DAILY (Reported) Lanreotide Acetate (Somatuline Depot) 60 Mg/0.2 Ml Syringe Unknown Dose SQ QMONTH (Reported) Followup Plan Disposition: Home Discharge Diet: Other (please advance your diet slowly) Discharge Activity: No restrictions Patient Instructions You were hospitalized with partial small bowel obstruction, in the setting of known neuroendocrine tumor. You were treated supportively with nasogastric tube decompression. Your condition improved significantly without any surgery Please advance your diet slowly, avoid heavy, hard meals for now. Please follow up with your primary doctor Oncologist in [place] in 4 weeks Follow-up with PCP in: 2 weeks Time spent 65 minutes Eloise Tello MD Oct 26, 2016 17:29
== END 2016-10-26 14:28 | disposition home or self-care (01) | DRG 389 ==
LOC: SED 18:03 → OSC 23:05
PROVIDERS: ADMIT Internal Medicine; ATTEND Internal Medicine
DX: K56.69 Other intestinal obstruction (principal); C7B.02 Secondary carcinoid tumors of liver; R22.9 Localized swelling, mass and lump, unspecified; R73.9 Hyperglycemia, unspecified; Z85.030 Personal history of malignant carcinoid tumor of large intestine